=== PATIENT | male | born 1995 | race Caucasian/White ===

== ENCOUNTER 2018-11-20 18:50 | Inpatient (IN) | payer OTHER ==
[~2018-11-20] VITALS: Ht 193 cm; Wt 89.1 kg
[2018-11-20 19:33] LABS: BASO % 0.5 % (0.0-2.0); EOS % 0.7 % (0-4.0); GRAN # 3.6 (1.4-6.5); GRAN % 63.5 % (42.2-75.2); HEMATOCRIT 44.3 % (42.0-52.0); HEMOGLOBIN 15.6 g/dl (13.5-18.0); LYMPH # 1.1 (1.2-3.4); LYMPH % 18.6 % (20.0-51.0); MEAN CELL VOLUME 85 fl (80.0-100.0); MEAN CORPUSCULAR HEMOGLOBIN 30 pg (27.0-31.0); MEAN CORPUSCULAR HGB CONC 35 g/dl (33.0-37.0); MEAN PLATELET VOLUME 10.5 fl (7.4-10.4); MONO # 0.9 (0.1-0.6); MONO % 16.5 % (1.7-9.3); PLATELET COUNT 288 K/mm3 (130-400); RED BLOOD COUNT 5.23 M/mm3 (4.20-5.60); REDCELL DISTRIBUTION WIDTH-CV 12.2 % (11.5-14.5)
[2018-11-20 19:45] LABS: ALBUMIN 4.6 gm/dL (3.5-5.0); CALCIUM 9.4 mg/dL (8.4-10.2); CREATININE, serum 0.86 mg/dL (0.66-1.25); PHOSPHOROUS 3.3 mg/dL (2.5-4.5); TOTAL PROTEIN 7.7 gm/dL (6.4-8.2)
[2018-11-20 20:57] LABS: COLLECTION METHOD CLEAN CATCH
[2018-11-20 21:03] LABS: MUCOUS Present /lpf; PH 6 (5-8); SQUAMOUS EPITHELIAL 0-2 /hpf; URINE APPEARANCE Clear; URINE BACTERIA None Seen /hpf; URINE BILIRUBIN Negative (NEGATIVE); URINE BLOOD 3+ (NEGATIVE); URINE COLOR Yellow; URINE GLUCOSE Negative (NEGATIVE); URINE KETONE 1+ (NEGATIVE); URINE LEUKOCYTE ESTERASE Negative (NEGATIVE); URINE NITRATE Negative (NEGATIVE); URINE PROTEIN(semi-quant) 1+ (NEGATIVE); URINE RBC 0-2 /hpf; URINE UROBILINOGEN >=4.0 mg/dL (NEGATIVE)
[2018-11-20 21:47] VITALS: BP 125/72; PULSE 83; TEMP 98.3
[2018-11-20 21:55] VITALS: BP 125/72; PULSE 89; TEMP 98.3
[2018-11-21] VITALS (7 sets, daily range): BP systolic 122–179; BP diastolic 60–90; PULSE 65–91; TEMP 96.6–98.9
[2018-11-21 00:41] LABS: INR 1.2 (0.8-3.0); PROTHROMBIN TIME 13.6 SECONDS (9.7-12.8)
[2018-11-21 00:51] LABS: ALBUMIN 3.2 gm/dL (3.5-5.0); BILIRUBIN,TOTAL 0.7 mg/dL (0.0-1.0); CALCIUM 8.1 mg/dL (8.4-10.2); CREATININE, serum 0.78 mg/dL (0.66-1.25); POTASSIUM 3.6 mmol/L (3.4-5.0); TOTAL PROTEIN 5.6 gm/dL (6.4-8.2)
[2018-11-21 01:03] LABS: BILIRUBIN UNCONJUGATED 0.6 mg/dL (0.0-1.1); BILIRUBIN,DIRECT 0.1 mg/dL (0.0-0.4)
[2018-11-21 06:53] LABS: BASO % 0.5 % (0.0-2.0); EOS # 0.1 (0.0-0.7); EOS % 1.6 % (0-4.0); GRAN # 1.5 (1.4-6.5); GRAN % 38.8 % (42.2-75.2); LYMPH # 1.5 (1.2-3.4); LYMPH % 39.8 % (20.0-51.0); MEAN CELL VOLUME 87 fl (80.0-100.0); MEAN CORPUSCULAR HGB CONC 34 g/dl (33.0-37.0); MEAN PLATELET VOLUME 10.5 fl (7.4-10.4); MONO # 0.7 (0.1-0.6); PLATELET COUNT 219 K/mm3 (130-400); RED BLOOD COUNT 4.08 M/mm3 (4.20-5.60); REDCELL DISTRIBUTION WIDTH-CV 12.4 % (11.5-14.5)
[2018-11-21 06:55] LABS: HEMATOCRIT 35.6 % (42.0-52.0); HEMOGLOBIN 12.1 g/dl (13.5-18.0); MEAN CORPUSCULAR HEMOGLOBIN 30 pg (27.0-31.0)
[2018-11-21 07:09] LABS: ALBUMIN 2.9 gm/dL (3.5-5.0); BILIRUBIN,TOTAL 0.3 mg/dL (0.0-1.0); CREATININE, serum 0.71 mg/dL (0.66-1.25); POTASSIUM 4.1 mmol/L (3.4-5.0); TOTAL PROTEIN 5.3 gm/dL (6.4-8.2)
--- NOTE | 2018-11-21 08:50 | NUR ---
PT IN BED WITH HOB ELEVATED TO 45 DEGREE ANGLE. PT DENIES PAIN OR DISCOMFORT, FLUIDS RUNNING, AND PT HAD MORE OUTPUT OF 625 ML OF URINE. PT PLEASANT AND COOPERATIVE, WITH NO NEEDS AT THIS TIME, CALL LIGHT WITHIN REACH.
--- NOTE | 2018-11-21 10:07 | NUR ---
SW attended clinical rounds to discuss discharge plans. Patient is a [employer] student and his PCP is in [place]. Patient has not needed to see a doctor recently but will utilize [facility] if he needs to. Patient requested SW contact [facility] to let them know he is hospitalized. No acticipated discharge needs. IRIS contacted [employer] ans informed them of patient's hospitalization and that he will likley be here through the weekend.
--- NOTE | 2018-11-21 10:29 | NUR ---
DR. MCKEON IN TO SEE PT. PT REFUSED TO HAVE A [employer]NAVID[employer] CATHETER PLACED. DR. MCKEON GAVE ORDERS TO START ANOTHER IV. DR. MCKEON WANTS HIM TO HAVE 2 IVs. PT ADVISED TO DRINK PLENTY OF WATER OR [facility].
[2018-11-21 11:57] LABS: TRICYCLIC ANTIDEPRESS URINE NEGATIVE
--- NOTE | 2018-11-21 16:36 | NUR ---
BLADDER SCAN PREFORMED AND ONLY 200 ML POST VOID.
--- NOTE | 2018-11-21 19:35 | NUR ---
PT HAS BEEN IN BED, BUT GETTING UP FREQUENTLY TO THE BATHROOM. PT ADVISED THAT HE WILL RECONSIDER GETTING A CATHETER IN TOMORROW MORNING. FAMILY CAME IN TO VISIT AND HE STILL HAS COMPANY IN HIS ROOM. PT ADVISED THAT HE WILL ORDER OUT FOR SUPPER TONIGHT. PT DENIES PAIN OR DISCOMFORT AT THIS TIME. CALL LIGHT WITHIN REACH.
--- NOTE | 2018-11-22 00:22 | NUR ---
Completed assessment and medication; PT declined pain or doscomfort at time of assessment; Previous bladder scan showed 200 residual; PT has had over 3600 out of clear yellow urine; A&Ox3, BS sounds active x4, LCTA; PT IND in room and with toileting; strict I&O with high flow IV input; PT declines further needs at time of exit; Call light placed within reach; Will continue to monitor. CDA
[2018-11-22 02:09] VITALS: BP 140/59; PULSE 59; TEMP 98.3
--- NOTE | 2018-11-22 03:14 | NUR ---
PT resting in bed with fluids running at rate per orders; No verbalized concerns or report of pain; Call light within reach; Will continue to monitor. CDA
--- NOTE | 2018-11-22 07:12 | NUR ---
Report given to TOMEKA Pastor. CDA
[2018-11-22 08:27] VITALS: BP 137/82; PULSE 70; TEMP 98.8
--- NOTE | 2018-11-22 09:05 | NUR ---
Pt sitting in bed. A&Ox4. Pt reports no pain at this time. Fluids d/c upon request of pt for shower and primary nurse okay. No reddness or pain reported at the sites.
[2018-11-22 09:32] LABS: BASO % 0.2 % (0.0-2.0); EOS # 0.1 (0.0-0.7); EOS % 1.6 % (0-4.0); GRAN # 3.4 (1.4-6.5); GRAN % 65.5 % (42.2-75.2); HEMOGLOBIN 12.4 g/dl (13.5-18.0); LYMPH # 1.1 (1.2-3.4); LYMPH % 20.4 % (20.0-51.0); MEAN CELL VOLUME 86 fl (80.0-100.0); MEAN CORPUSCULAR HEMOGLOBIN 30 pg (27.0-31.0); MEAN CORPUSCULAR HGB CONC 34 g/dl (33.0-37.0); MONO # 0.6 (0.1-0.6); MONO % 12.1 % (1.7-9.3); PLATELET COUNT 199 K/mm3 (130-400); RED BLOOD COUNT 4.21 M/mm3 (4.20-5.60); REDCELL DISTRIBUTION WIDTH-CV 12.5 % (11.5-14.5)
[2018-11-22 09:33] LABS: HEMATOCRIT 36.3 % (42.0-52.0)
[2018-11-22 09:35] LABS: ALBUMIN 3.3 gm/dL (3.5-5.0); BILIRUBIN,TOTAL 0.7 mg/dL (0.0-1.0); CALCIUM 8.8 mg/dL (8.4-10.2); CREATININE, serum 0.58 mg/dL (0.66-1.25); POTASSIUM 3.8 mmol/L (3.4-5.0); TOTAL PROTEIN 5.8 gm/dL (6.4-8.2)
--- NOTE | 2018-11-22 09:42 | NUR ---
Restarted both IV sites. See MAR. Pt states R wrist discomfort due to location end of cath line. Requests IV restart. Will FU with primary nurse.
[2018-11-22 11:45] VITALS: BP 146/72; PULSE 65; TEMP 97.6
--- NOTE | 2018-11-22 13:13 | NUR ---
Primary nurse was assisted with [id number] patient care by [employer] student Ariana Lema and [employer] instuctor Kylah Harrison RN-.
[2018-11-22 15:34] VITALS: BP 123/73; PULSE 84; TEMP 97.9
[2018-11-22 19:53] VITALS: BP 134/85; PULSE 62; TEMP 98.9
[2018-11-22 23:00] VITALS: BP 132/75; PULSE 78; TEMP 98.4
--- NOTE | 2018-11-23 02:28 | NUR ---
Complete assessment and medication administration; PT tolerated all well; No acute changes or pain reported during assessment; A&Ox3, BS active x4, BUE +1 edema with firmness and no pain; NS running at 500ml/hr and 1/2 NS running at 250ml/hr per orders to 20G RH and LFA IV; PT denies further needs at time of exit from room; call light placed within reach; Will continue to monitor. CDA
--- NOTE | 2018-11-23 03:28 | NUR ---
PT resting well in bed; Duel IVs running with NS at 500ml/hr and 1/2 NS 250ml/hr; BUE show improvement to edema and firmness over last 24hr; maintaining urinary output with light yellow clear urine; UA collected and taken to lab; No further requested at time exit; call light placed within reach; Will continue to monitor. CDA
[2018-11-23 03:31] VITALS: BP 145/94; PULSE 67; TEMP 97.6
[2018-11-23 05:24] LABS: COLLECTION METHOD CLEAN CATCH
[2018-11-23 05:36] LABS: PH 6 (5-8); SQUAMOUS EPITHELIAL None Seen /hpf; URINE APPEARANCE Clear; URINE BACTERIA None Seen /hpf; URINE BILIRUBIN Negative (NEGATIVE); URINE BLOOD 1+ (NEGATIVE); URINE COLOR Straw; URINE GLUCOSE Negative (NEGATIVE); URINE KETONE Trace (NEGATIVE); URINE LEUKOCYTE ESTERASE Negative (NEGATIVE); URINE NITRATE Negative (NEGATIVE); URINE PROTEIN(semi-quant) Negative (NEGATIVE); URINE RBC 0-2 /hpf; URINE UROBILINOGEN Negative (NEGATIVE); URINE WBC 0-2 /hpf
--- NOTE | 2018-11-23 07:20 | NUR ---
Report given to TOMEKA Madera. CDA
[2018-11-23 08:16] VITALS: BP 138/79; PULSE 56; TEMP 98.1
--- NOTE | 2018-11-23 08:20 | NUR ---
Report received from TOMEKA Lemus. Pt sleeping soundly in bed. Call light in reach.
[2018-11-23 08:26] LABS: BASO % 0.4 % (0.0-2.0); EOS # 0.1 (0.0-0.7); EOS % 2.4 % (0-4.0); GRAN # 3.5 (1.4-6.5); GRAN % 64.8 % (42.2-75.2); HEMATOCRIT 37.3 % (42.0-52.0); HEMOGLOBIN 12.7 g/dl (13.5-18.0); LYMPH # 1.2 (1.2-3.4); LYMPH % 22.2 % (20.0-51.0); MEAN CELL VOLUME 88 fl (80.0-100.0); MEAN CORPUSCULAR HEMOGLOBIN 30 pg (27.0-31.0); MEAN CORPUSCULAR HGB CONC 34 g/dl (33.0-37.0); MEAN PLATELET VOLUME 10.9 fl (7.4-10.4); MONO # 0.5 (0.1-0.6); MONO % 9.8 % (1.7-9.3); PLATELET COUNT 215 K/mm3 (130-400); RED BLOOD COUNT 4.26 M/mm3 (4.20-5.60); REDCELL DISTRIBUTION WIDTH-CV 12.4 % (11.5-14.5)
[2018-11-23 08:43] LABS: ALBUMIN 3.4 gm/dL (3.5-5.0); BILIRUBIN,TOTAL 0.8 mg/dL (0.0-1.0); CALCIUM 8.7 mg/dL (8.4-10.2); CREATININE, serum 0.65 mg/dL (0.66-1.25); POTASSIUM 3.9 mmol/L (3.4-5.0); TOTAL PROTEIN 5.8 gm/dL (6.4-8.2)
--- NOTE | 2018-11-23 09:45 | NUR ---
Pt resting in bed comfortably and denied pain. Call light in reach.
--- NOTE | 2018-11-23 10:44 | NUR ---
Pt getting ready to take a shower at this time.
[2018-11-23 11:11] VITALS: BP 130/75; PULSE 80; TEMP 98.7
--- NOTE | 2018-11-23 14:00 | NUR ---
Pt waiting for dc order at this time. Dr. Sauceda came to see pt and will see the pt as an outpt at his office. Call light in reach.
--- NOTE | 2018-11-23 14:35 | NUR ---
Pt went over dc instruction and able to verbalize understanding of dc instruction. Pt signed dc paper and escorted out by TOMEKA Madera. Pt made sure that he's scheduled to see Dr. Sauceda on this and lab on Sunday before he sees Dr. Sauceda. Pt verbalized understanding.
== END 2018-11-23 14:37 | disposition home or self-care (01) | DRG 558 ==
LOC: COL.ER 18:50 → MEDICAL 20:16
PROVIDERS: Emergency Medicine; Internal Medicine Nephrology; Nurse Practitioner; Physician Assistant; ADMIT Family Medicine
DX: M62.82 Rhabdomyolysis (principal); Z87.891 Personal history of nicotine dependence; R74.0 Nonspecific elevation of levels of transaminase and lactic acid dehydrogenase [LDH]
CPT/HCPCS: 99223-AI; 99231-AI; J1650; J7030